=== PATIENT | male | born 1990 | race Caucasian/White ===

== ENCOUNTER 2016-08-15 18:40 | Emergency (ER) | payer OTHER ==
[~2016-08-15] VITALS: Ht 170.2 cm; Wt 82.5 kg
[2016-08-15 18:43] VITALS: Ht 170.2 cm; Wt 82.5 kg
--- NOTE | 2016-08-15 19:57 | RADRPT ---
PROCEDURE: XR Knee. CLINICAL INDICATION: Left knee pain TECHNIQUE: 3 images of the left knee are available for review. COMPARISON: None available FINDINGS: There is no acute fracture. Alignment is normal. Joint spaces are preserved. Soft tissues are grossly unremarkable. IMPRESSION: 1. No radiographic evidence of acute osseous abnormality of the left knee. RPTAT: [facility] .Nahid Rios MD, MD Date Time Electronically viewed and signed by .Nahid Rios MD, on 08/15/2016 19:57 .K/
[2016-08-15] MEDS ORDERED: ACETAMINOPHEN 325 MG TAB PO ONE (20:00)
[2016-08-15] MEDS ORDERED: NAPR-260 PO (20:05)
[2016-08-15 20:29] VITALS: BP 114/59; PULSE 65; RESP 20; TEMP 98.6
--- NOTE | 2016-08-15 20:35 | ERD ---
ER Documentation Chief Complaint Date/Time DATE: 08/15/16 TIME: 20:31 Chief Complaint left knee pain while playing soccer HPI This patient is a 26-year-old male with no significant medical history presenting to the emergency department with left knee pain after injury approximately 3 hours prior to arrival. Patient was playing soccer when he put all of his weight down on his left knee and it "gave out". Since the injury occurred the patient took Advil with mild relief of symptoms. Exacerbating factors include walking. Alleviating factors include standing. The patient has never had this problem in the past. Patient denies head injury, twisting of the knee or other injuries or symptoms. ROS All systems reviewed and are negative except as per history of present illness. Medications Home Meds Active Scripts Naproxen* (Naprosyn*) 500 Mg Tablet, 500 MG PO BID Y for PAIN AND/OR INFLAMMATION, #30 TAB Prov:YAJAIRA MORSE PA-C 08/15/16 Allergies Allergies: Coded Allergies: No Known Allergy (Unverified , 08/15/16) PMhx/Soc Medical and Surgical Hx: pt denies Medical Hx, pt denies Surgical Hx Hx Alcohol Use: No Hx Substance Use: No Hx Tobacco Use: No Smoking Status: Never smoker Physical Exam Vitals Vital Signs Date Time Temp Pulse Resp B/P Pulse Ox O2 Delivery O2 Flow Rate FiO2 08/15/16 20:29 98.6 65 20 114/59 100 Room Air 08/15/16 18:43 97.7 63 20 116/56 10 Physical Exam Const: Nontoxic, well-appearing male in no acute distress. Head: Atraumatic Eyes: Normal Conjunctiva ENT: Normal External Ears, Nose and Mouth. Neck: Full range of motion..~ No meningismus. Resp: Clear to auscultation bilaterally Cardio: Regular rate and rhythm, no murmurs Abd: Soft, non tender, non distended. Normal bowel sounds Skin: No petechiae or rashes Back: No midline or flank tenderness Ext: No cyanosis, or edema. There is some tenderness palpation of the medial portion of the left knee. No limits in range of motion noted. Negative anterior and posterior drawer test. There is no effusion or significant erythema noted. Neur: Awake and alert Psych: Normal Mood and Affect Results 24 hrs Current Medications Medications (Trade) Dose Ordered Sig/Baljit Route PRN Reason Start Time Stop Time Status Last Admin Dose Admin Acetaminophen (Tylenol Tab) 650 mg ONCE ONCE PO 08/15/16 20:00 08/15/16 20:01 DC 08/15/16 19:42 Procedures/MDM 26-year-old male presenting to the emergency department with complaints of left knee pain after injury earlier today. Examination shows some tenderness palpation of the medial portion of the knee. Negative anterior and posterior drawer test. 2+ pulses distal to the injury. X-ray was negative for fracture or other acute abnormalities and was interpreted by the radiologist. The patient is stable for outpatient management with a prescription for naproxen and close follow-up with orthopedics. Patient was given crutches with training in the department. An Milad wrap was applied and the patient was neurovascularly intact post application. Strict ER return precautions were discussed. Close follow-up with the primary care physician advised. I have low suspicion for septic joint, fracture, or other emergent conditions. Departure Diagnosis: Primary Impression: Knee pain Condition: Fair Patient Instructions: Knee Sprain Referrals: [facility] YOU HAVE RECEIVED A MEDICAL SCREENING EXAM AND THE RESULTS INDICATE THAT YOU DO NOT HAVE A CONDITION THAT REQUIRES URGENT TREATMENT IN THE EMERGENCY DEPARTMENT. FURTHER EVALUATION AND TREATMENT OF YOUR CONDITION CAN WAIT UNTIL YOU ARE SEEN IN YOUR DOCTORS OFFICE WITHIN THE NEXT 1-2 DAYS. IT IS YOUR RESPONSIBILITY TO MAKE AN APPOINTMENT FOR FOLOW-UP CARE. IF YOU HAVE A PRIMARY DOCTOR --you should call your primary doctor and schedule an appointment IF YOU DO NOT HAVE A PRIMARY DOCTOR YOU CAN CALL OUR PHYSICIAN REFERRAL HOTLINE AT IF YOU CAN NOT AFFORD TO SEE A PHYSICIAN YOU CAN CHOSE FROM THE FOLLOWING [facility] [id number] [facility] [address] [facility] [address] [facility] [address] [facility] [address] [facility]. [facility]. [address] [facility] Hours: Mon-Fri 9:00 AM - 5:00 PM Additional Instructions: Follow up with your PCP within the next 1-3 days for a repeat evaluation and a possible referral to a specialist, if required. Return the the emergency department immediately if symptoms worsen or change. If you have any questions regarding medications, ask your pharmacist or us before you leave. If any adverse reactions, occur while taking your medications, discontinue the treatment and return to the emergency department immediately. If any new or worsening symptoms, uncontrolled fevers, or other unexplained symptoms occur, return to the emergency department immediately. Take your medications as directed, and complete the entire course of treatment. YAJAIRA MORSE PA-C Aug 15, 2016 20:35
== END 2016-08-15 20:30 | disposition home or self-care (01) ==
LOC: FTE 18:40
DX: M25.562 Pain in left knee (principal)
CPT/HCPCS: 73562